=== PATIENT | female | born 1995 | race Caucasian/White ===

== ENCOUNTER 2023-07-13 20:59 | Outpatient (CLI) | payer MEDICAID, SELFPAY ==
[2023-07-13 21:08] VITALS: BMI 43.3
[2023-07-13 21:15] VITALS: BP 119/62; PULSE 99; RESP 14; TEMP 36.1; O2SAT 96
[2023-07-13 21:20] VITALS: PULSE 100; O2SAT 98
--- NOTE | 2023-07-13 21:36 | OB.TRI.NOTE ---
HPI - General HPI Narrative FRANCISCA WOODSON, is a 27 F who presents to triage with cramps and back pain that started earlier today. Patient rates pain 8/10 at times. Positive movement. Denies any loss of fluid or vaginal bleeding. Patient is scheduled for repeat C/S next week. Maternal Data Information PATSY Calculator Estimated Delivery Date Method Current WG Current Estimate 07/31/23 Manual 37w 4d PFSH PFSH Home Medications ?Medication ?Instructions ?Recorded ?Last Taken ?Type vit no.95-ferrous 1 tab PO DAILY 07/13/23 07/12/23 History fumarate 28 mg-folic acid 800 mcg tablet () nitrofurantoin 100 mg PO BID 7 days #14 CAPSULES 07/14/23 Unknown Rx monohydrate/macrocrystals 100 mg capsule (Macrobid) Allergy/AdvReac Type Severity Reaction Status Date / Time No Known Allergies Allergy Verified 07/13/23 21:18 ROS Eyes Eyes: Denies blurry vision Cardiovascular Cardiovascular: Reports none; Denies chest pain at rest, chest pain with activity or dizziness Respiratory/Chest Respiratory/Chest: Denies cough or dyspnea Gastrointestinal Gastrointestinal: Reports none and other; Denies diarrhea or vomiting Genitourinary Genitourinary: Denies dysuria Musculoskeletal Musculoskeletal: Reports none Integumentary Integumentary: Reports none; Denies rash Neurologic Neurologic: Denies dizziness, headache(s) or other visual disturbances Psychiatric Psychiatric: Reports none Physical Exam Const alert and no apparent distress General Appearance: cooperative Orientation / Consciousness: awake Exam Limitations: no limitations HEENT normocephalic Eyes General Eye: normal appearance of both eyes Neck full ROM Chest inspection of chest normal Resp normal respiratory effort and normal air movement Effort and Inspection: symmetric chest movement Auscultation: clear to auscultation bilaterally Cardio regular rate GI soft to palpation, non-tender and non-distended Inspection: and other Back/Spine normal ROM Extremity full ROM, normal capillary refill and no calf tenderness Skin no rashes or lesions noted Neuro oriented x3 and CN's II-XII intact bilaterally Psych mental status grossly normal NST FHR Rate Baby A Baseline: 130 Variability:: Moderate Accelerations:: 15 x 15 Decelerations:: None NST Reactive:: Yes FHR Category:: Category I Uterine Activity:: occasional Assessment & Plan (1) BMI 40.0-44.9, adult: (2) Maternal obesity syndrome in third trimester: (3) Supervision of other high risk pregnancies, third trimester: (4) Previous delivery affecting : (5) Back pain affecting : PLAN: Plan CE - FT/thick/high- no change UA - Positive for blood and leuk- Sending culture Start Macrobid 100 mg PO BID x 7 days NST reactive, Cat. 1 tracing D/C home with follow up visit this week in office
[2023-07-13 21:56] LABS: Bacteria 0 SEEN /hpf (None Seen); Mucous, Urine 0 SEEN /hpf (<or=2+)
[2023-07-13 22:43] LABS: Color, Urine Yellow (Yellow); Glucose, Dipstick Normal (Normal); Ketone-Dipstick Negative (Negative); Leukocyte Esterase-Dipstick 100 /ul (Negative); Nitrite-Dipstick Negative (Negative); Occult Blood-Urine 10 /ul (Negative); Protein-Dipstick Negative (Negative); Red Blood Cells-Urine 0-5 SEEN /hpf (0-5); Squamous Epithelial Cells - UA 0-5 SEEN /hpf (5-10); Urine Bilirubin Dipstick Negative (Negative); Urine Clarity Clear (Clear); Urine Urobilinogen Normal (Normal); White Blood Cells 10-25 SEEN /hpf (0-5)
[2023-07-13] MEDS: Nitrofurantoin Macrocrystals 100 MG Capsule PO (22:56)
== END 2023-07-13 23:00 | disposition home or self-care (01) ==
LOC: WPOUT 21:04 → WP 21:05
PROVIDERS: Referring Provider Advanced Practice Midwife; Visit Provider Advanced Practice Midwife
DX: O99.891 Other specified diseases and conditions complicating pregnancy (principal); M54.9 Dorsalgia, unspecified; O99.213 Obesity complicating pregnancy, third trimester; Z3A.37 37 weeks gestation of pregnancy
CPT/HCPCS: 59025; 59050; 81001; 87086; 99221; G0378

== ENCOUNTER 2023-07-26 09:52 | Inpatient (IN) | payer BC, SELFPAY ==
--- NOTE | 2023-07-11 11:54 | HP.PCM_ITS ---
History and Physical Date of Admission: 07/26/23 HPI: The patient is a 27 year old female presenting for pre-operative visit. She is scheduled for , for previous c/s on 07/26/23. Procedure discussed along with risks, benefits and complications. Other alternatives discussed for management. Consent form signed? Yes. PAST MEDICAL HISTORYExpand by Default PAST MEDICAL HISTORY Diagnosis Date ? Asthma no inhaler use since 2016 ? Blood dyscrasia ? Fracture 2001 right leg ? Fracture of upper extremity left arm 2003 right arm 2002 ? Polycythemia ? depression ? Venous thromboembolism as child PAST SURGICAL HISTORY PAST SURGICAL HISTORY Procedure Laterality Date ? APPENDECTOMY ? DELIVERY ONLY 09/11/2017 [facility] ? DELIVERY ONLY 10/31/2021 ? MYRINGOTOMY ? PAST SURGICAL HISTORY OF capped 19 teeth ? REPAIR UMBILICAL HERNIA ? TONSILLECTOMY & ADENOIDECTOMY <AGE 11 CURRENT MEDICATIONS Current Outpatient Medications Medication Sig Dispense Refill ? sertraline (ZOLOFT) 50 mg tablet Take 1 tablet by mouth once daily. 30 tablet 1 ? ondansetron orally disintegrating (ZOFRAN ODT) 4 mg disintegrating tablet Take 1 tablet by mouth every 8 hours as needed for nausea/vomiting. 30 tablet 0 ? pyridoxine, vitamin B6, (VITAMIN B-6) 25 mg tablet Take 1 tablet by mouth three times a day. 30 tablet 2 ? VIT 63-HSPT-BPCSY-DHA ORAL Take by mouth. No current facility-administered medications for this visit. ALLERGIES: Patient has no known allergies. PERSONAL HISTORY: SOCIAL HISTORY Social History Tobacco Use ? Smoking status: Former Years: 10 Types: Cigarettes Quit date: 10/02/2022 Years since quittin.7 ? Smokeless tobacco: Never Vaping Use ? Vaping Use: Never used Substance Use Topics ? Alcohol use: Not Currently ? Drug use: Not Currently Types: Marijuana Comment: no use since 2014 FAMILY HISTORY: FAMILY HISTORY FAMILY HISTORY Problem Relation Age of Onset ? No Known Problems Mother ? other (polycythemia) Father ? Obesity Father ? No Known Problems Sister ? No Known Problems Brother ? No Known Problems Brother ? Breast Cancer Maternal Grandmother ? Uterine Cancer Maternal Grandmother ? Emphysema Maternal Grandfather ? Hypertension Maternal Grandfather ? No Known Problems Paternal Grandmother ? other (polycythemia) Paternal Grandfather ? No Known Problems Daughter ? No Known Problems Daughter REVIEW OF SYMPTOMS: GENERAL: denies fevers or chills ENDOCRINOLOGY: has not been on steroids Cardiology : denies palpitations or chest pain Respiratory: denies SOB or cough Hematology: denies history of prolonged bleeding or easy bruising or VTE Allergy: Denies history of personal or family history of allergy to anesthesia PHYSICAL EXAMINATION: VITALS: Blood pressure 109/69, weight 109.8 kg (242 lb), last menstrual period 10/19/2022, not currently . GENERAL: The patient is well nourished, well hydrated in no acute distress. , The patient is oriented to time, place, and person. NECK: Supple. No lynphadenopathy, normal thyroid, no thyromegaly. LUNGS: Clear to auscultation bilaterally. no wheezes, rhonchi or rales HEART: Regular rate and rhythm, Normal heart sounds, and No murmurs or gallops abd- soft, nontender, gravid IMPRESSION: Estimated Date of Delivery: 07/31/23 h/o 2 c/s maternal obesity PLAN: The risks/benefits/alternatives and personal involved for the planned c- section were reviewed with the patient. Her questions were answered to her satisfaction and she desires to proceed. Consent was signed. I reviewed with her postop instructions and expectations. I have reviewed and updated past medical and surgical history, medications and allergies Assessment & Plan Assessment/Plan (1) Previous delivery affecting : (2) Supervision of other high risk pregnancies, third trimester: (3) Maternal obesity syndrome in third trimester: (4) BMI 40.0-44.9, adult:
[2023-07-26] VITALS (21 sets, daily range): BP systolic 77–117; BP diastolic 49–74; PULSE 53–85; RESP 16–20; TEMP 35.3–36.7; O2SAT 95–100; BMI 42.7
[2023-07-26] MEDS: Lactated Ringers 1,000 ML 999 ML IV ×2 (10:20→18:25)
[2023-07-26 10:44] LABS: Absolute Lymphocyte Count 2.06 X10^3/uL (0.83-4.51); Absolute Neutrophil Count 6.2 X10^3/uL (2.0-7.7); Basophil# 0.02 X10^3/uL; Basophil% 0.2 % (0-1); Eosinophil# 0.13 X10^3/uL; Eosinophils% 1.4 % (0-5); Hematocrit 34.8 % (37-47); Hemoglobin 11.6 g/dL (12.0-15.0); Lymphocyte # 2.06 X10^3/ul (0.83-4.51); Mean Corp Hgb Conc 33.3 g/dL (32-36); Mean Corpuscular Hgb 30.7 pg (27.0-32.0); Mean Corpuscular Volume 92.1 fL (81-99); Mean Platelet Vol. 11.1 fl (6.2-12.0); Monocyte# 0.52 X10^3/uL; Monocyte% 5.8 % (0-10); NRBC Flagged by Analyzer 0 % (0-5); Neutrophil # 6.21 X10^3/uL (2.7-7.7); Neutrophil % 69.3 % (47-70); Platelet Count 245 K/mm3 (150-450); RBC Distribution Width CV 12.6 % (11.6-14.6); RBC Distribution Width SD 42.1 fl (35.1-43.9); Red Blood Count 3.78 M/mm3 (4.2-5.4)
[2023-07-26] MEDS: Lactated Ringers 1,000 ML 150 ML IV (11:16)
[2023-07-26 11:21] LABS: Syphilis Antibodies Non-reactive
[2023-07-26] MEDS: Sodium Citrate/Citric Acid 30 ML UDC PO (12:02)
[2023-07-26] MEDS: Acetaminophen 500 MG Tablet 1000 MG PO ×2 (12:02→18:17)
[2023-07-26] MEDS: Cefazolin 2 GM in 0.9% Normal Saline (100mL Bag) 100 ML IV (12:29)
--- NOTE | 2023-07-26 13:22 | EX.PCM.OBRPT ---
Assessment & Plan (1) BMI 40.0-44.9, adult: (2) Maternal obesity syndrome in third trimester: (3) Supervision of other high risk pregnancies, third trimester: (4) Previous delivery affecting : Maternal Data Information PATSY Calculator Estimated Delivery Date Method Current WG Current Estimate 07/31/23 Manual 39w 2d Final PATSY: 07/31/23 Gestational age: 39 2/7 Details Operative Information Date of Procedure: 07/26/23 Pre-Operative Diagnosis: previous c/s, 39 weeks Post-Operative Diagnosis: same Indications for : Repeat Elective Classification: Scheduled Procedure Type: low transverse care transition coordinator #1: Guillermina Sifuentes Type of Anesthesia: Spinal Anesthesiologist: Kevin Badillo Antibiotic Given: Ancef 2 grams IV x1 Drain: Griffith to straight drain Estimated Blood Loss: 800 Fluids Replaced: 1050 Procedure Start Time: 12:51 Procedure Stop Time: 13:30 Time of Delivery: 12:53 Findings Description of Procedure: The patient was taken to the operating room. She was prepped and draped in the dorsal supine position with a leftward tilt. A Pfannenstiel skin incision was made approximately 2 cm above the symphysis pubis and carried through to underlying layer fascia with the scalpel. The fascia was incised incised in the midline and extended laterally with the Perez scissors. The fascia was dissected off the rectus muscles with blunt and sharp dissection. The rectus muscles were in the midline and the peritoneum was entered bluntly. The peritoneal incision was stretched and the bladder blade was placed. The uterine incision was made in a low transverse fashion with the scalpel and extended superiorly and inferiorly with blunt dissection. The amniotic membranes were ruptured bluntly and clear amniotic fluid returned. The infant's head was brought to the incision in the flexed position and delivered without difficulty. The remainder of the infant was delivered with gentle traction and fundal pressure in the standard fashion. The mouth and nares were bulb suctioned. The cord was clamped and cut as the was stimulated. Cord clamping was delayed. The was handed off to the waiting nursing staff. The placenta was delivered with fundal massage and gentle traction in the standard fashion. The uterus was exteriorized and cleared of all clots and debris. The cervix was dilated with a ring forcep. The uterine incision was closed with #1 Vicryl in a running locked fashion. The incision was examined and was found to be hemostatic. The uterus was placed back into the peritoneal cavity and hemostasis was again confirmed. The rectus muscles were examined and any bleeding was Bovie cauterized. The parietal peritoneum and rectus muscles were closed en bloc with an 0 Vicryl running suture. The rectus fascia was examined and any bleeding was Bovie cauterized and the rectus fascia was closed with 0 PDS suture in a running standard fashion. The subcutaneous tissue was examining and any bleeding was Bovie cauterized. The subcutaneous tissue was reapproximated with 3-0 Vicryl suture. The skin was closed in a subcuticular fashion by the [employer] SUPERVISOR with me present in the labor and delivery suite. I performed the remainder of the procedure with assistance. All sponge, lap, and needle counts were correct. The patient was taken to her room for recovery in a stable condition. Presentation: Positive for Vertex Amniotic Membrane Rupture Type: Artificial Amniotic Fluid Description: Clear Placental Delivery Description: Spontaneous Placenta Disposition: [facility] Cord Vessel Description: 3 Vessels Cord Entanglement: Around neck x 1, loose Nuchal Cord Compression: Without compression A Gender: Female (Braylee 6lb 4 oz) (1 minute): 8 (5 minute): 9 Delayed Cord Clamping: Yes Complications Complications: none Admit VTE Documentation VTE Present on Admission: No VTE Mechan Device Prophylaxis: SCD's VTE Pharm Prophylaxis Ordered: Yes
[2023-07-26] MEDS: Oxytocin 15 Units/NS 250ml 15 UNITS/250 ML IV.SOLN 83 UNITS IV (14:00)
[2023-07-26] MEDS: Ketorolac 30 MG/ML Syringe IV (15:03)
[2023-07-26] MEDS: 0.9% Saline Lock 10 ML Syringe IV (15:04)
[2023-07-26] MEDS: Lactated Ringers 1,000 ML 100 ML IV (17:12)
--- NOTE | 2023-07-26 18:35 | PCM.PN.BLA ---
Progress Note called for low blood pressure. at bedside to evaluate patient. Patient is doing well. She states when she sat up she felt dizzy, but no lightheadedness or dizziness at this present moment. She denies chest pain, shortness of breath, leg pain. She reports her pain is well-controlled with Toradol. Lochia has been normal. She feels well and offers no complaints at this time. Physical Exam Const alert and no apparent distress General Appearance: comfortable HEENT normocephalic Resp normal respiratory effort GI soft to palpation and non-distended GI Narrative: ATTP, non acute, dressing c/d/i Extremity no calf tenderness Assessment & Plan Assessment/Plan (1) S/P section: (2) Hypotension: PLAN: Patient is asymptomatic at this time. She is not tachycardic. Abdominal exam is benign. Will check CBC and start fluid bolus.
[2023-07-26 18:54] LABS: Absolute Lymphocyte Count 2.89 X10^3/uL (0.83-4.51); Absolute Neutrophil Count 10.5 X10^3/uL (2.0-7.7); Basophil# 0.02 X10^3/uL; Basophil% 0.1 % (0-1); Eosinophil# 0.12 X10^3/uL; Eosinophils% 0.8 % (0-5); Hematocrit 32.6 % (37-47); Hemoglobin 10.8 g/dL (12.0-15.0); Lymphocyte # 2.89 X10^3/ul (0.83-4.51); Lymphocyte % 19.9 % (19-41); Mean Corp Hgb Conc 33.1 g/dL (32-36); Mean Corpuscular Hgb 30.9 pg (27.0-32.0); Mean Corpuscular Volume 93.4 fL (81-99); Mean Platelet Vol. 10.8 fl (6.2-12.0); Monocyte# 0.94 X10^3/uL; Monocyte% 6.5 % (0-10); NRBC Flagged by Analyzer 0 % (0-5); Neutrophil # 10.52 X10^3/uL (2.7-7.7); Neutrophil % 72.4 % (47-70); Platelet Count 243 K/mm3 (150-450); RBC Distribution Width CV 12.6 % (11.6-14.6); RBC Distribution Width SD 43.1 fl (35.1-43.9); Red Blood Count 3.49 M/mm3 (4.2-5.4); White Blood Count 14.5 K/mm3 (4.4-11.0)
[2023-07-26] MEDS: LACTATED RINGERS 500 ML 999 ML IV (22:48)
[2023-07-27] VITALS (11 sets, daily range): BP systolic 100–122; BP diastolic 53–67; PULSE 71–86; RESP 14–18; TEMP 36.1–36.8; O2SAT 92–97
[2023-07-27] MEDS: Acetaminophen 500 MG Tablet 1000 MG PO ×4 (00:19→18:24)
[2023-07-27] MEDS: Ketorolac 30 MG/ML Syringe IV ×3 (00:19→12:56)
[2023-07-27] MEDS: Enoxaparin 40 MG/0.4 ML Syringe SC ×2 (00:22→12:56)
--- NOTE | 2023-07-27 04:44 | NURSING ---
2L carina vargas d/sandee at this time
[2023-07-27 04:59] LABS: Hematocrit 30.7 % (37-47); Hemoglobin 10.2 g/dL (12.0-15.0); Mean Corp Hgb Conc 33.2 g/dL (32-36); Mean Corpuscular Hgb 31.1 pg (27.0-32.0); Mean Corpuscular Volume 93.6 fL (81-99); Platelet Count 190 K/mm3 (150-450); RBC Distribution Width CV 12.6 % (11.6-14.6); RBC Distribution Width SD 43.8 fl (35.1-43.9); Red Blood Count 3.28 M/mm3 (4.2-5.4); White Blood Count 10.4 K/mm3 (4.4-11.0)
[2023-07-27] MEDS: 0.9% Saline Lock 10 ML Syringe IV (06:22)
--- NOTE | 2023-07-27 06:50 | PCM.PN.CNM ---
Subjective Subjective Patient seen at bedside. Feeling well. Pain is controlled with Motrin and Tylenol PO. Patient ambulating and voiding without difficulty. Passing flatus. Denies any CP, SOB or dizziness. Objective Data Objective Data Vital Signs: Vital Signs Temp Pulse Resp BP Pulse Ox O2 Del Method O2 Flow Rate 98 F 77 16 122/62 H 97 Room Air 2 07/27/23 04:30 07/27/23 06:26 07/27/23 06:26 07/27/23 04:30 07/27/23 04:30 07/27/23 06:26 07/27/23 04:30 Oxygen Flow Rate (L/min) 2 Oxygen Delivery Method Room Air Weight: 241 lb 8 oz Body Mass Index (BMI) 42.7 Intake & Output: Intake and Output for Last 24 Hours 07/25/23 07/26/23 07/27/23 23:59 23:59 23:59 Intake Total 4010.74 / 4010.74 541.66 / 541.66 Output Total 1070 / 1070 1150 / 1150 Balance 2940.74 / 2940.74 -608.34 / -608.34 Lab / Micro Data 07/27/23 04:40 Labs: Laboratory Results - last 24 hr 07/26/23 10:20: WBC 9.0, RBC 3.78 L, Hgb 11.6 L, Hct 34.8 L, MCV 92.1, MCH 30.7, MCHC 33.3, RDW Std Deviation 42.1, RDW Coeff of Earl 12.6, Plt Count 245, MPV 11.1, Immature Gran % (Auto) 0.300, Neut % (Auto) 69.3, Lymph % (Auto) 23.0, [place] % (Auto) 5.8, Eos % (Auto) 1.4, Baso % (Auto) 0.2, Absolute Neuts (auto) 6.2, Absolute Lymphs (auto) 2.06, Nucleated RBC % 0, Syphilis Total Ab Non-reactive, Blood Type A POSITIVE, Antibody Screen NEGATIVE 07/26/23 18:45: WBC 14.5 H, RBC 3.49 L, Hgb 10.8 L, Hct 32.6 L, MCV 93.4, MCH 30.9, MCHC 33.1, RDW Std Deviation 43.1, RDW Coeff of Earl 12.6, Plt Count 243, MPV 10.8, Immature Gran % (Auto) 0.300, Neut % (Auto) 72.4 H, Lymph % (Auto) 19.9, [place] % (Auto) 6.5, Eos % (Auto) 0.8, Baso % (Auto) 0.1, Absolute Neuts (auto) 10.5 H, Absolute Lymphs (auto) 2.89, Nucleated RBC % 0 07/27/23 04:40: WBC 10.4, RBC 3.28 L, Hgb 10.2 L, Hct 30.7 L, MCV 93.6, MCH 31.1, MCHC 33.2, RDW Std Deviation 43.8, RDW Coeff of Earl 12.6, Plt Count 190, MPV 11.0 Physical Exam Narrative Dressing is dry and intact Const alert and no apparent distress General Appearance: cooperative and comfortable Exam Limitations: no limitations HEENT normocephalic Eyes General Eye: normal appearance of both eyes Neck full ROM General: normal visual inspection Chest Chest: symmetrical chest wall rise Resp normal respiratory effort and normal air movement Effort and Inspection: symmetric chest movement Auscultation: clear to auscultation bilaterally Cardio regular rate and regular rhythm GI normal to inspection, nondistended, normoactive bowel sounds Back/Spine normal ROM Extremity full ROM and no calf tenderness General Extremity: normal exam except as noted Skin no rashes or lesions noted Neuro CN's II-XII intact bilaterally Psych mental status grossly normal Assessment & Plan (1) S/P section: (2) Maternal obesity syndrome in third trimester: (3) Supervision of other high risk pregnancies, third trimester: (4) Previous delivery affecting : (5) BMI 40.0-44.9, adult: PLAN: Plan POD 1 Repeat CBC Formula feeding Pain control Anticipate discharge home tomorrow
[2023-07-27] MEDS: Sertraline 50 MG Tablet PO (09:58)
[2023-07-27] MEDS: Senna/Docusate Sodium 1 Tablet PO (09:58)
[2023-07-27] MEDS: oxyCODONE 5 MG Tablet PO (15:20)
--- NOTE | 2023-07-27 16:30 | CASEMGMT ---
Social Work Assessment Labor and Delivery Unit Patient Address: [address] [place], [place] [address] Phone number: [phone] Date of Referral: 07.26.23 Time of Referral: 1033 Referred By: Dr. Renee Mayorga Date of Intervention: 07.27.23 Time of Intervention: 1629 Reason for Referral: Patient's father currently an alcoholic History obtained from: Medical records and mother of baby (MOB) gomez Stoll; father of baby (FOB) James Stoll present for part of conversation. Household composition: MOB, FOB, and 3 children including the . Patient's parent/guardian status: MOB is a 27 year old female, to the FOB for the last 5 years (together for 8). During private conversation, MOB denied any safety concerns or domestic violence issues in relationship with FOB. MOB and FOB now share three children together: Clif (5 years old), Agustín (1.5 year old) and baby hebert Becker (07.26.23). Medical History: MARIAH is G3, P2 to 3 after delivering baby hebert Becker via delivery MOB fullterm at delivery. delivered weighing 6 pounds 4 ounces at , with Apgars 8 and 9 at 1 and 5 minutes of life respectively. Educational Status: High school diploma. Denies any concerns with reading, writing, or learning comprehension. 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 FODevin works as an [employer] consumer safety officer. No reports financial concerns reported. Infant Supplies: MOB reports to have all needed supplies including a crib, pack and play, bassinet, car seat, clothing, diapers and wipes. Childcare/Caregiver(s): MOB and FOB will be primary caregivers, and have childcare in place when MOB returns to work. Transportation: MOB and FOB are both able to drive and denies any concerns with reliable transportation. Programs/Agencies Involved: No reports of any agency involvement. Reports has looked into WIC in the past but over the income threshold. Children Services/Legal Issues: No reports or indication. Behavioral Health Issues: Mental Health History: MOB has a reported history of both depression and anxiety. MOB reports depression hit after the second child was born and reports does not really want to go through this again. MOB reports eventually she went to see her doctor and was placed on medication, which helped. Reports currently on Zoloft and identifies feeling this medication works well. MOB reports has been in counseling in the past though not currently. MOB reports she and the FOB have been discussing about each individually going to counseling and then maybe to get back. [place] depression screening was completed during this assessment, with a score of 9. Higher scores were all related to anxiety which MOB reports seems to be more of an issue than depression at this point. MOB discussed grounding techniques she likes to do for coping. Additional grounding techniques discussed and reviewed with MOB. MOB denies any history of suicidal ideation or attempt. MOB did share having a traumatic childhood, though did not go into details about this. Substance Use History: MOB denies any concerns with alcohol or substance use. MOB does have a history of marijuana use, but denies any use since about 2014. Family History: MARIAH reports her mother, the 's maternal grandmother, has some form of mental health issue. MOB reports had a traumatic childhood when referencing the MOB's mother. FOB reports to have ADHD and anxiety, for which VIRGIE takes medication (Buspirone). Drug Screens: None noted in the record. Family/Social Stressors: None reported, though MOB does admit to some anxiety and depression early on in . Support Systems: MOB reports good support from the FOB, FOB's family who lives close by, and the MOB's sister Alyse. Depression/Shaken Baby/Safe Sleeping: Reviewed all topics, and provided literature and resources for home going. ASSESSMENT: Met with MOB and FOB in room, along with social insurance adviser Reena Houston, for assessment. As social work entering the room, the MOB's older children, MOB's sister, and VIRGIE's mother leaving. Introduced MOB and FOB to self and social work role. MOB and FOB both engaged in conversation, pleasant and cooperative with social work visit. Observed both MOB and FOB to attend to infant, and both were appropriate and attentive to infant. MOB and FOB both appeared supportive of each other, talking openly about their own mental health and how each supported the other in seeking support. MOB tearful during discussion, when reflecting upon depression experience. Emotional support and supportive listening offered. Validation and normalization of the dynamics surrounding motherhood. MOB reports Zoloft has been helpful for MOB's depression and anxiety, and has been considering counseling. Educated that counseling as potential outlet to help MOB develop and building upon her coping and addressing negative thinking patterns. MOB expressed receptivity to having counseling resources. FOB shared own experience surrounding anxiety, and that medication has been helpful for the FOB. Educated to mood and anxiety disorders, risk factors for both mothers and father, and reinforced the importance of seeking out help and support should symptoms arise or worsen. MOB reports will have help from the FOB for 1 month , and then will have help available from the FOB's family who are local. MOB and FOB both expressed appreciation for social work visit, as well as the care provided at [facility]. PLAN: MOB and baby to home when medically ready. Resources provided on depression and anxiety, online resources, mental health hotlines, and counseling. No other services requested or indicated. -JING Epps MSW *This note was generated with [employer] dictation software. It may contain incorrect words, spelling, and punctuation that were not noted in review of the chart prior to signing*
[2023-07-27] MEDS: Ibuprofen 600 MG Tablet PO (18:24)
[2023-07-28] MEDS: Acetaminophen 500 MG Tablet 1000 MG PO ×2 (00:23→05:53)
[2023-07-28] MEDS: Enoxaparin 40 MG/0.4 ML Syringe SC (00:23)
[2023-07-28] MEDS: Ibuprofen 600 MG Tablet PO ×2 (00:23→05:53)
[2023-07-28] MEDS: oxyCODONE 5 MG Tablet PO ×2 (00:23→09:38)
[2023-07-28 02:10] VITALS: BP 104/69; PULSE 84; RESP 17; TEMP 36.4; O2SAT 97
[2023-07-28 08:50] VITALS: BP 111/84; PULSE 84; RESP 16; TEMP 36.1; O2SAT 97
[2023-07-28] MEDS: Sertraline 50 MG Tablet PO (08:50)
[2023-07-28] MEDS: Etonogestrel 68 MG IMPLANT SC (08:57)
--- NOTE | 2023-07-28 09:13 | PCM.PN.OB ---
Subjective Subjective Pain well-controlled. Average lochia. No nausea or vomiting. Ambulating and tolerating regular diet. Objective Data Objective Data Vital Signs: Vital Signs Temp Pulse Resp BP Pulse Ox O2 Del Method O2 Flow Rate 97.5 F L 84 17 104/69 97 Room Air 2 07/28/23 02:10 07/28/23 02:10 07/28/23 02:10 07/28/23 02:10 07/28/23 02:10 07/28/23 02:10 07/27/23 04:30 Oxygen Flow Rate (L/min) 2 Oxygen Delivery Method Room Air Weight: 109.543 kg Body Mass Index (BMI) 42.7 Intake & Output: Intake and Output for Last 24 Hours 07/26/23 07/27/23 07/28/23 23:59 23:59 23:59 Intake Total 4010.74 / 4010.74 541.66 / 541.66 Output Total 1070 / 1070 1600 / 1600 Balance 2940.74 / 2940.74 -1058.34 / -1058.34 Lab / Micro Data 07/27/23 04:40 Physical Exam Narrative Bandages clean dry and intact Const alert General Appearance: cooperative GI GI Narrative: soft, moderate distention, fundus firm, appropriately tender. Abdominal bandage clean dry and intact Assessment & Plan (1) S/P section: PLAN: Postoperative day #2 status post repeat . Patient desires discharge home. Follow-up in 1 to 2 weeks or as needed. Routine instructions and prescriptions given. Procedure note: Patient was consented for Nexplanon insertion. Risk benefits and alternatives were reviewed. Consent was signed. Timeout was performed. Left arm was prepped in the usual site. 3 cc of 1% lidocaine with dilute epinephrine solution were used to anesthetize the region. Expiration date and lot numbers were confirmed for the Nexplanon. The Nexplanon was inserted in the usual sterile fashion. The instrument deployed without difficulty. Care was taken to make sure that it was placed right under the skin layer. Placement was confirmed with palpation. A Band-Aid was placed over the insertion site and then a pressure wrap applied. Patient tolerated procedure well.
--- NOTE | 2023-07-28 09:20 | PCM.DC.SUM ---
Providers Date of Admission: 07/26/23 Primary Care Physician: No Primary Care Phys Reason For Visit: REPEAT Diagnosis Discharge Diagnosis (1) S/P section: Status: Acute Code(s): Z98.891 - History of uterine scar from previous surgery Plan: Postoperative day #2 status post repeat . Patient desires discharge home. Follow-up in 1 to 2 weeks or as needed. Routine instructions and prescriptions given. Procedure note: Patient was consented for Nexplanon insertion. Risk benefits and alternatives were reviewed. Consent was signed. Timeout was performed. Left arm was prepped in the usual site. 3 cc of 1% lidocaine with dilute epinephrine solution were used to anesthetize the region. Expiration date and lot numbers were confirmed for the Nexplanon. The Nexplanon was inserted in the usual sterile fashion. The instrument deployed without difficulty. Care was taken to make sure that it was placed right under the skin layer. Placement was confirmed with palpation. A Band-Aid was placed over the insertion site and then a pressure wrap applied. Patient tolerated procedure well. Medications at Discharge Home Medications vit no.95-ferrous fumarate 28 mg-folic acid 800 mcg tablet () 1 tab PO DAILY 07/13/23 sertraline 50 mg tablet (Zoloft) 50 mg PO DAILY depression 07/26/23 ibuprofen 600 mg tablet 600 mg PO Q6H PRN Pain 30 days #60 TABLETS 07/28/23 oxycodone 5 mg tablet 5 mg PO Q8H PRN PRN severe pain 5 days #7 TABLETS 07/28/23 Hospital Course Operations - (Repeat on 07/26/23) Procedures - (Nexplanon insertion 07/28/23) Summary of Care Provided Minutes Spent on Discharge: 22 Hospital Course: 27-year-old multigravida female admitted at 39 weeks gestation for repeat section on 07/26/2023 which was performed without difficulty. By postoperative day #2 she is ambulating, urinating tolerating regular diet without difficulty was discharged home with routine instructions and prescriptions. She had a Nexplanon placed on 07/28/2023. She is follow-up in the office in 1 to 2 weeks or as needed. Weight / BMI Weight Weight: 109.543 kg Body Mass Index (BMI) 42.7 ABG / Lab / Microbiology Data 07/27/23 04:40 D/C Instructions Discharge Diet: No restrictions May resume sexual activity in: 4-6 weeks Lifting Restrictions: 20 pounds Additional Activity Instructions: Nothing in the vagina for 4-6 weeks. You may return to work/school in 6 weeks. Call your doctor if your incision/area has: Continuous Slow Oozing, Sudden Increased Bleeding, Increased Pain/ Swelling, Increased Redness and Foul Smelling Discharge Call your doctor if you observe: Fever of 101 or Higher and Using more than 1 pad per hour (for 2 hours) Suture Line Care: Avoid Pulling/Pushing and Avoid Pinching/Bending Cleanse incision/area with: Keep Dressing Clean & Dry Please Follow Up With: Renee Mayorga MD When: Call to make an appointment for an incision check in 1-2 [phone]. You will need a post check in 6 weeks. Meaningful Use Info Meaningful Use Meaningful Use Diagnoses (Choose all that apply): None applicable Ischemic Stroke Statin Dosing Therapy Reference: STATIN DOSE THERAPY REFERENCE: * Patients > 75 years receive moderate or high dose statin therapy. * Patients 75 years or YOUNGER should receive HIGH intensity statin dose unless contraindicated. You will be required to document reason for non-treatment if statin daily dose does not meet guidelines. HIGH DOSE STATIN THERAPY DAILY Atorvastatin > than or = to 40 mg Rosuvastatin > than or = to 20 mg Amlodipine + Atorvastatin > than or = to 2.5/40 mg Ezetimibe + Simvastatin 10/80 mg Simvastatin 80mg Discharge Plan Admission Admit Date/Time: 07/26/23 09:52 Primary Reason for Your Visit: and Nexplanon insertion Attending Provider: Renee Mayorga Primary Care Provider: Care Physician,No Primary Discharge Orders/Prescriptions Prescriptions: New ibuprofen 600 mg tablet 600 mg PO Q6H PRN (Reason: Pain) 30 Days Qty: 60 1RF oxycodone 5 mg tablet 5 mg PO Q8H PRN PRN (Reason: severe pain) 5 Days Qty: 7 0RF No Action sertraline [Zoloft] 50 mg tablet 50 mg PO DAILY PNV cmb#95-ferrous fumarate-FA [] 28 mg iron- 800 mcg tablet 1 tab PO DAILY Referrals / Follow Up: Care Physician,No Primary [Primary Care Provider] - Disposition Disposition (needs filled in before D/C Order can be placed): Home, Self Care
== END 2023-07-28 10:30 | disposition home or self-care (01) | DRG 787 ==
PROVIDERS: Obstetrics & Gynecology; Admitting Provider Obstetrics & Gynecology; Visit Provider Obstetrics & Gynecology
PROC: 10D00Z1 Extraction of Products of Conception, Low, Open Approach (ICD-10-PCS; CPT 59514; principal; 2023-07-26 11:45)
DX: O34.211 Maternal care for low transverse scar from previous cesarean delivery (principal); O99.43 Diseases of the circulatory system complicating the puerperium; I95.81 Postprocedural hypotension; O99.214 Obesity complicating childbirth; O69.2XX0 Labor and delivery complicated by other cord entanglement, with compression, not applicable or unspecified; Z3A.39 39 weeks gestation of pregnancy; Z37.0 Single live birth; Z87.891 Personal history of nicotine dependence
CPT/HCPCS: 59050; 85025; 85027; 86780; 86850; 86900; 86901; 99221; J7120; A4216; G0378; J2405